=== PATIENT | male | born 2000 | race Caucasian/White ===

== ENCOUNTER 2022-02-11 11:07 | Emergency (ER) | payer OTHER ==
[2022-02-11 11:21] VITALS: BP 136/78; PULSE 94; RESP 20; TEMP 97.7; BMI 23.1
== END 2022-02-11 14:13 | disposition home or self-care (01) ==
LOC: JER 11:07
DX: R05.1 Acute cough (principal)
CPT/HCPCS: 0241U-QW; 71046-TC-FY; 99284-25